=== PATIENT | female | born 1965 | race Two or more races ===

== ENCOUNTER 2017-08-03 09:43 | Day surgery (SDC) | payer OTHER ==
[2017-08-03] VITALS (8 sets, daily range): BP systolic 98–119; BP diastolic 55–92
[~2017-08-03] VITALS: Ht 154.9 cm; Wt 93.0 kg
--- NOTE | 2017-08-03 06:57 | Pre-Procedure Note/Attestation ---
Pre-Procedure Note/Attestation Complete Prior to Procedure Planned Procedure: left Procedure Narrative: left knee scope, medial meniscectomy and chondroplasty Indications for Procedure Pre-Operative Diagnosis: left knee medial meniscus tear Attestation I attest that I discussed the nature of the procedure; its benefits; risks and complications; and alternatives (and the risks and benefits of such alternatives ), prior to the procedure, with the patient (or the patient's legal communications representative). I attest that, if there was a reasonable possibility of needing a blood transfusion, the patient (or the patient's legal communications representative) was given the [facility] standardized written summary, pursuant to the [employer] [place] Blood Safety Act ([place] Health and Safety Code # 1645, as amended). I attest that I re-evaluated the patient just prior to the surgery and that there has been no change in the patient's H&P, except as documented below: none Kevin Ochoa MD Aug 03, 2017 06:57
[~2017-08-03 09:43] MED LIST: ceFAZolin sod 1 GM in D5W 110 ML IVP ONE; celeBREX 200mg Cap **SURGERY PATIENTS ONLY ORAL ONE; oxyCONTIN 20mg tab ORAL ONE
[2017-08-03] MEDS ORDERED: oxyCONTIN 20mg tab ORAL ONE (11:01)
[2017-08-03] MEDS ORDERED: celeBREX 200mg Cap **SURGERY PATIENTS ONLY ORAL ONE (11:02)
[2017-08-03] MEDS ORDERED: NKM (11:18)
[2017-08-03] MEDS ORDERED: Norco 5mg/325mg tab ORAL PRN ×2 (11:45→12:30)
[2017-08-03] MEDS ORDERED: Tylenol #3 tab (300mg/30mg) ORAL PRN (11:45)
[2017-08-03] MEDS ORDERED: D5 1/2NS 1,000 ML IV SCH (11:45)
[2017-08-03] MEDS ORDERED: NS Irrig 4000ml IRRIG ONE ×2 (12:00→12:40)
[2017-08-03] MEDS ORDERED: LR 1000ml ONE (12:00)
[2017-08-03] MEDS ORDERED: Sodium Chloride 10ml vial INJ ONE ×2 (12:10→12:12)
[2017-08-03] MEDS ORDERED: Lidocaine 1% MPF 10mg/ml 5ml ONE ×2 (12:10→12:12)
[2017-08-03] MEDS ORDERED: Propofol 200mg/20ml IV ONE ×2 (12:10→12:12)
[2017-08-03] MEDS ORDERED: Midazolam 2mg/2ml Inj ONE (12:11)
[2017-08-03] MEDS ORDERED: fentaNYL 100 mcg/2 mL IV ONE (12:11)
[2017-08-03] MEDS ORDERED: Dexamethasone 4mg/ml vial ONE (12:12)
[2017-08-03] MEDS ORDERED: Ropivacaine 5mg/ml Vial 30ml INJ ONE (12:14)
[2017-08-03] MEDS ORDERED: ePHEDrine 50mg/ml Inj ONE (12:22)
[2017-08-03] MEDS ORDERED: LR 1000ml 1,000 ML IVLG SCH (12:29)
[2017-08-03] MEDS ORDERED: LORazepam Inj 2mg/ml 1ml IV PRN (12:30)
[2017-08-03] MEDS ORDERED: Labetalol 5mg/ml 20ml vial IV PRN (12:30)
[2017-08-03] MEDS ORDERED: Metoclopramide 10mg/2ml Inj IVP PRN (12:30)
[2017-08-03] MEDS ORDERED: fentaNYL 100 mcg/2 mL IV PRN (12:30)
[2017-08-03] MEDS ORDERED: Midazolam 2mg/2ml Inj IVP PRN (12:30)
[2017-08-03] MEDS ORDERED: HYDROcodone/Acetamin 7.5/325 tab ORAL PRN (12:30)
[2017-08-03] MEDS ORDERED: Ketorolac 30mg Inj IV PRN ×2 (12:30)
[2017-08-03] MEDS ORDERED: DiphenhydrAMINE 50mg/ml Inj IVP PRN (12:30)
[2017-08-03] MEDS ORDERED: Hydromorphone 0.5mg/0.5ml inj IVP PRN (12:30)
[2017-08-03] MEDS ORDERED: oxyCODONE HCL/Acetaminophen 5/325mg ORAL PRN (12:30)
[2017-08-03] MEDS ORDERED: Atropine Inj 1mg/10ml Syr IV PRN (12:30)
--- NOTE | 2017-08-03 12:37 | Anethesia Preoperative Eval ---
Anesthesia Pre-op PMH/ROS General Date of Evaluation: Aug 03, 2017 Time of Evaluation: 11:57 Anesthesiologist: Shane ASA Score: ASA 3 Mallampati Score Class I : Soft palate, uvula, fauces, pillars visible Class II: Soft palate, uvula, fauces visible Class III: Soft palate, base of uvula visible Class IV: Only hard plate visible Mallampati Classification: Class III Surgeon: Don Diagnosis: L Knee Pain Surgical Procedure: L Knee Arthroscopy Anesthesia History: none Family History: no anesthesia problems Allergies: Coded Allergies: No Known Allergies (Unverified , 07/30/17) Medications: see eMAR Past Medical History Gastrointestinal/Genitourinary: Reports: GERD Other: obesity - BMI 40 PSxH Narrative: UHR Anesthesia Pre-op Phys. Exam Physician Exam Last Vital Signs Date Time Temp Pulse Resp B/P (MAP) Pulse Ox O2 Delivery O2 Flow Rate FiO2 08/03/17 11:14 97.7 54 18 114/74 98 Room Air 97.7 Constitutional: NAD Neurologic: CN 2-12 intact Cardiovascular: RRR Respiratory: CTA Gastrointestinal: S/NT/ND Airway Exam Mallampati Score: Class III MO: limited ROM: limited Teeth: intact Anesthesia Pre-op A/P Risk Assessment & Plan Assessment: ASA 3 Plan: GA, BIS Status Change Before Surgery: No Pre-Antibiotics Dru Grams Ancef IV Given Within 1 Hr of Incision: Yes Time Given: 12:16 Fazal Lnyn MD Aug 03, 2017 12:37
--- NOTE | 2017-08-03 12:40 | Immediate Post-Op Evaluation ---
Immediate Post-Op Evalulation Immediate Post-Op Evalulation Procedure: L Knee Arthroscopy Date of Evaluation: Aug 03, 2017 Time of Evaluation: 13:18 IV Fluids: 500 LR Blood Products: 0 Estimated Blood Loss: 10 Urinary Output: 0 Blood Pressure Systolic: 98 Blood Pressure Diastolic: 55 Pulse Rate: 60 Respiratory Rate: 16 O2 Sat by Pulse Oximetry: 94 Temperature (Fahrenheit): 97.3 Pain Score (1-10): 2 Nausea: No Vomiting: No Complications 0 Patient Status: awake, reacts, patent, extubated, none Hydration Status: adequate Dru Grams Ancef IV Given Within 1 Hr of Incision: Yes Time Given: 12:16 Fazal Lynn MD Aug 03, 2017 12:40
--- NOTE | 2017-08-03 12:40 | 48 Hour Post Anesthesia Eval ---
Post Anesthesia Evaluation Procedure: L Knee Arthroscopy Date of Evaluation: Aug 03, 2017 Time of Evaluation: 15:23 Blood Pressure Systolic: 111 0: 69 Pulse Rate: 62 Respiratory Rate: 18 Temperature (Fahrenheit): 98.2 O2 Sat by Pulse Oximetry: 99 Airway: patent Nausea: No Vomiting: No Pain Intensity: 2 Hydration Status: adequate Cardiopulmonary Status: Stable Mental Status/LOC: patient returned to baseline Follow-up Care/Observations: 0 Post-Anesthesia Complications: 0 Follow-up care needed: ready to discharge Fazal Lynn MD Aug 03, 2017 12:40
--- NOTE | 2017-08-03 13:01 | Brief Operative Note ---
Immediate Post Operative Note Operative Note Chief Complaint: left knee pain Pre-op Diagnosis: left knee lateral meniscus tear Procedure: left knee scope, lateral meniscectomy and chondroplasty Post-op Diagnosis: same as pre-op Findings: consistent w/pre-op dx studies Surgeon: md edin Bias Binding Folder: marlen solano Anesthesiologist: md alyssa Anesthesia: general Specimen: none Complications: none Condition: stable Fluids: ns Estimated Blood Loss: minimal Drains: none Implant(s) used?: No Pina Solano Aug 03, 2017 13:01
--- NOTE | 2017-08-03 20:30 | Operative Note - Dictated ---
SURGERY DATE: 08/03/2017 PREOPERATIVE DIAGNOSIS: Left knee meniscus tear. POSTOPERATIVE DIAGNOSES: 1. Left knee posterior horn and body of the lateral meniscus tear involving 20% of lateral meniscus. 2. Left knee large traumatic chondral flap over the lateral femoral condyle measuring 1.5 x 1.5 cm in the weightbearing zone of the lateral femoral condyle with complete delamination and dissociation from the subchondral bone. 3. Left knee previous tear of the posterior horn of the medial meniscus involving 15% of medial meniscus. 4. Left knee patellofemoral grade 2 and grade 3 chondral changes. PROCEDURE: 1. Left knee arthroscopy and extensive intra-articular shaving. 2. Left knee patellofemoral chondroplasty. 3. Left knee lateral femoral chondroplasty with resection of a large unstable lateral femoral chondral traumatic flap of cartilage. 4. Left knee partial lateral meniscectomy involving posterior horn and body of lateral meniscus. 5. Left knee partial medial meniscectomy involving 15% of posterior horn of medial meniscus. SURGEON: Kevin Ochoa M.D. STOREPERSON: Pina Saenz PA-C. Advertising Supervisor was present during the actual operative portion of the case and was important and essential part of the operation. During the operation, the sound assistant held and operated the arthroscopic camera for visualization, assisted by manipulating the leg to help with visualization, and helped with essential parts of the repair process as necessary such as operating surgical instruments under surgeon supervision, suture management, and wound closures. ANESTHESIOLOGIST: Dr. Lynn. ANESTHESIA: LMA anesthesia. TOURNIQUET TIME: 40 minutes. ESTIMATED BLOOD LOSS: Minimal. COMPLICATIONS: None. SURGICAL INDICATION: The patient is a 52-year-old female who sustained the above injury to her knee. The patient was treated non-operative initially, but this did not alleviate the patients symptoms. Therefore, after discussing all non-surgical and surgical options, and discussing all foreseeable risk and benefits of surgery, the patient opted for surgical treatment as described above. PATIENT POSITIONING: The patient was brought to the operating room table and placed supine. All pressure points were well padded. General anesthesia was induced and a well-padded tourniquet was placed on the thigh. The lateral post was placed and positioned to allow for opening of the medial compartment of the knee without placing pressure over the fibular head. The patients entire leg was prepped and draped in the usual sterile fashion. Time out was performed and preop antibiotic was given and after exsanguinating the lower extremity, the tourniquet was inflated to 275 mmHg. EXAMINATION OF THE KNEE UNDER ANESTHESIA: Before prepping and draping the knee and while the patient was relaxed under general anesthesia, the knee was examined for ROM, and anterior and posterior, medial and lateral, posterolateral, and posteromedial instability. Pivot shift testing was performed. There was no evidence of loss of motion or instability and the pivot shift testing was negative. PORTAL PLACEMENT: The lateral portal was placed with the knee flexed to 90 degrees at the level of inferior border of the patella in line with the lateral border of the patella. A 0.5-cm skin incision was made with an #11 blade, and using a blunt obturator, the capsule was gently penetrated. Sterile saline solution was then infused inside the knee with the aid of a pump set at 35 mmHg pressure. Under direct visualization, placement of the medial portal was preliminarily judged using a spinal needle, and it was subsequently established using the same technique as the lateral portal. Care was given not to injure the cutaneous branches of the medial saphenous nerve or the subcutaneous veins. DIAGNOSTIC ARTHROSCOPY: The suprapatellar patellar pouch was visualized. There was no evidence of scar tissue or loose fragments. The medial and lateral patellar facets and trochlear groove articular cartilage was visualized. There was chondral damage of the medial and lateral patellar facet and trochlear groove consistent with grade 2 and grade 3 chondromalacia. The medial plica shelf and the corresponding medial femoral condyle articular cartilage were visualized. There was no significantly thickening of the medial plica shelf and there were no kissing? lesion over the medial femoral condyle. The lateral gutter and the posterolateral corner of the knee were visualized. There were no loose bodies, and the popliteus tendon and other structures of the posterolateral corner of the knee were intact intra-articularly. At this point, the knee was placed in the figure of four position and the lateral compartment was entered. The lateral femoral condyle, lateral tibial plateau, and the anterior, body, and the posterior horn of the lateral meniscus were visualized and probed. There was a large chondral flap measuring 1 x 1.5 cm over the lateral femoral condyle. This was an unstable chondral flap which was completely delaminated from the subchondral bone in the weightbearing zone of the lateral femoral condyle. This was completely unstable and appeared to be traumatic in nature as there was no degeneration around this chondral flap and it was judged an unstable chondral flap that had dissociated from subchondral bone. There were some tears of the posterior horn and body of the lateral meniscus involving 20% of lateral meniscus. The knee was then placed at 90 degree and the ACL and PCL were visualized and probed. The ACL was completely intact on visualization and probing, and it had excellent tension. The PCL was completely intact on visualization and probing and it had excellent tension. The medial compartment was then entered and the medial femoral condyle, medial tibial plateau, and the anterior, body, and the posterior horn of the medial meniscus were visualized and probed. The articular surfaces were intact and devoid of articular cartilage damage. There was a posterior horn of the medial meniscus tear involving 15% of the posterior horn of medial meniscus. The medial gutter was visualized. There was no evidence of defect or loose fragments. The scope was then brought back to the patella femoral compartment. OPERATIVE ARTHROSCOPY: At this point, all loose debris and fragments were removed with the use of suction motorized shaver. Specific attention was given to assure all visible loose fragments were irrigated out of the knee joint with pump inflow and cannula outflow system. The frayed articular cartilage of the undersurface of the patella and the trochlear groove were debrided using a motorized shaver. Suction was used to pull in the loose fragments and flaps of the cartilage and to minimize damage to the intact and well attached portion of the cartilage. This allowed for a smooth surface for the articular cartilage gliding. At this point, attention was given to the lateral meniscus. Using combination of baskets and bigg, the torn portion of the lateral meniscus was removed. Attention was given to remove all displaced and unstable portion of the lateral meniscus while maintaining as much of the functional portion of the meniscus as possible. Approximately, 20% of the posterior horn and body of the meniscus was removed in this fashion. The transition between the meniscectomy portion and intact portion of the meniscus was smoothed out with combination of small baskets and bigg. Excellent transition zone was obtained in this fashion. Care was given to the area of cartilage damage in the lateral compartment. The frayed and loose fragments of articular cartilage were debrided using a motorized shaver. Suction was used to pull in the loose fragments and flaps of the cartilage and to minimize damage to the intact and well attached portion of the cartilage. This allowed for smooth surfaces for the articular cartilage. At this point, attention was given to the medial meniscus. Using combination of baskets and bigg, the torn portion of the medial meniscus was removed. Attention was given to remove all displaced and unstable portion of the medial meniscus while maintaining as much of the functional portion of the meniscus as possible. Approximately, 15% of the posterior horn of the medial meniscus was removed in this fashion. The transition between the meniscectomy portion and intact portion of the meniscus was smoothed out with combination of small baskets and bigg. Excellent transition zone was obtained in this fashion. CONDITION AT DISCHARGE FROM OPERATING ROOM: The knee was irrigated with copious amount of normal saline at the end of the procedure. The scope was removed and the water was drained. The skin edges were re-approximated and sterile dressing was applied. All lap count and instrument counts were correct. The patient tolerated the procedure well without complications and was taken to the recovery room in stable conditions. Kevin Ochoa M.D. DR: Boni JOB#: [id number] CC:
== END 2017-08-03 14:20 | disposition home or self-care (01) ==
LOC: SUR 09:43
DX: S83.282A Other tear of lateral meniscus, current injury, left knee, initial encounter (principal); S83.242A Other tear of medial meniscus, current injury, left knee, initial encounter; X58.XXXA Exposure to other specified factors, initial encounter; Y93.9 Activity, unspecified; Y92.9 Unspecified place or not applicable; M19.90 Unspecified osteoarthritis, unspecified site; K21.9 Gastro-esophageal reflux disease without esophagitis
CPT/HCPCS: 29877; 29880; J0690; J1100; J2250; J2405; J2704; J2795; J3010; J7120; 94003; 94150